=== PATIENT | male | born 1960 | race Caucasian/White ===

== ENCOUNTER 2020-11-17 16:24 | Emergency (ER) | payer OTHER ==
[~2020-11-17] VITALS: Ht 172.7 cm; Wt 86.0 kg
[2020-11-17 18:20] VITALS: BP 144/84
== END 2020-11-17 18:51 | DRG 914 ==
LOC: ED 16:24
DX: S68.611A Complete traumatic transphalangeal amputation of left index finger, initial encounter (principal); W31.9XXA Contact with unspecified machinery, initial encounter; Y93.89 Activity, other specified; Y92.73 Farm field as the place of occurrence of the external cause; Y99.0 Civilian activity done for income or pay